=== PATIENT | male | born 1970 | race Caucasian/White ===

== ENCOUNTER → 2018-02-08 | Outpatient (CLI) | payer BC ==
--- NOTE | 2018-02-08 17:11 | PCVCIMAG ---
APPROVED REPORT Study performed: 02/08/2018 16:06:53 Exam: Stress Echocardiogram Indication: Hyperlipidemia, Hypertension, Pre op clearance Patient Location: Echo lab Stress Nurse: Ghislaine Lynn RN Status: routine Ht: 6 ft 4 in HR: 108 bpm BP: 114/80 mmHg Rhythm: Tachycardia Medical History Medical History: Hyperlipidemia, HTN Procedure The patient underwent an Exercise Stress Test using the Modified René Protocol. Blood pressure, heart rate, and EKG were monitored. An Echocardiogram was performed by hospital pharmacy technician in four stages in quad fashion. At peak stress, four selected images were obtained and placed side by side with resting images for comparison. Stress Test Details Stress Test: Exercise stress testing was performed using a René protocol. HR Resting HR: 108 bpmMax Heart Rate (APMHR): 170 bpm Max HR Achieved: 157 bpmTarget HR (85% APMHR): 144 bpm % of APMHR: 92 Recovery HR: 123 bpm HR response to stress: Normal HR response to stress BP Resting BP: 114/80 mmHg Max BP: 168/86 mmHg Recovery BP: 132/78 mmHg BP response to stress: Normal blood pressure response to stress. ECG Resting ECG: Sinus Tachycardia Stress ECG: Sinus Tachycardia Recovery ECG: Sinus Tachycardia Clinical Reason for Termination: Maximal effort Exercise duration: 8 min 02 sec Highest Stage Achieved: Stage 3: 3.4 mph at 14% grade. Exercise capacity: 10.40 METs Overall Exercise Capacity for Age: Normal Pre-Stress Echo The resting Echocardiogram showed normal left ventricular contractility with an estimated Ejection Fraction of about 55-60%. Normal wall motion in all segments on baseline images. Post-Stress Echo The stress Echocardiogram showed normal left ventricular contractility with an estimated Ejection Fraction of about 60-65%. Normal augmentation of wall motion in all segments on post stress images. Clinical No clinical or ECG evidence for ischemia. Conclusion Clinical Response: Non-ischemic Exercise Capacity: Average Stress ECG Response: Non-ischemic Stress Echo Images: Non-ischemic The left ventricle is normal in size and wall thickness in both the rest and stress images.short pr interval no preexcitation Other Information Study Quality: Technically Difficult <Conclusion> The left ventricle is normal in size and wall thickness in both the rest and stress images.short pr interval no preexcitation
== END | disposition home or self-care (01) ==
LOC: PCVCIMAG 15:45
PROVIDERS: ATTEND Internal Medicine Cardiovascular Disease
DX: Z01.818 Encounter for other preprocedural examination (principal); I10 Essential (primary) hypertension; E78.5 Hyperlipidemia, unspecified
CPT/HCPCS: 93325; 93351